=== PATIENT | female | born 1970 | race Two or more races ===

== ENCOUNTER 2019-06-24 23:19 | Emergency (ER) | payer OTHER ==
[~2019-06-24] VITALS: Ht 165.1 cm; Wt 71.7 kg
--- NOTE | 2019-06-24 23:41 | NUR ---
PT BIBRA C/O SOB W/ COUGH X 1 DAY TO ER BWED 4, VSS, ON 2L O2, AWAITING MED EVAL
[2019-06-25 00:36] LABS: BASOPHILS % (AUTO) 0.3 % (0.0-2.0); EOSINOPHILS % (AUTO) 0.9 % (0.0-6.0); HEMATOCRIT 44 % (33-45); HEMOGLOBIN 14.8 g/dL (11.5-14.8); LYMPHOCYTES # (AUTO) 0.9 /CMM (0.8-4.8); LYMPHOCYTES % (AUTO) 6.9 % (20.0-44.0); MEAN CORPUSCULAR HGB CONC 34 g/dl (31.0-36.0); MEAN CORPUSCULAR VOLUME 90 fL (82-100); MONOCYTES % (AUTO) 7.7 % (2.0-12.0); NEUTROPHILS # (AUTO) 11.3 /CMM (1.8-8.9); NEUTROPHILS % (AUTO) 84.2 % (43.0-81.0); PLATELET COUNT (AUTO) 223 /CMM (150-450); RED BLOOD CELL COUNT(AUTO) 4.94 MIL/uL (4.0-5.2); WHITE BLOOD COUNT (AUTO) 13.5 K/uL (4.3-11.0)
[2019-06-25] MEDS ORDERED: ALBUTEROL FS 2.5 MG/0.5 ML VIAL.NEB ONE (00:47)
[2019-06-25] MEDS ORDERED: IPRATROPIUM NEB FS 0.5 MG/2.5 ML AMPUL.NEB ONE (00:48)
[2019-06-25] MEDS: ALBUTEROL FS 2.5 MG/0.5 ML VIAL.NEB NEB ONE (00:49)
[2019-06-25] MEDS: IPRATROPIUM NEB FS 0.5 MG/2.5 ML AMPUL.NEB NEB ONE (00:49)
[2019-06-25 01:15] LABS: CALCIUM, SERUM 9.5 mg/dL (8.5-10.1); CARBON DIOXIDE 29 mmol/L (21-32); CHLORIDE 99 mmol/L (98-107); CREATININE 0.7 mg/dL (0.6-1.3); GLUCOSE 133 mg/dL (74-106); POTASSIUM 4.5 mmol/L (3.5-5.1); SODIUM SERUM 136 mmol/L (136-145); UREA NITROGEN, BLOOD 12 mg/dL (7-18)
--- NOTE | 2019-06-25 01:56 | NUR ---
Patient discharged to home in stable condition. Written and verbal after care instructions given. Patient verbalizes understanding of instruction.
[2019-06-25 01:58] VITALS: BP 139/102
== END 2019-06-25 01:58 | disposition home or self-care (01) ==
LOC: ER 23:23
DX: B34.9 Viral infection, unspecified (principal); J40 Bronchitis, not specified as acute or chronic; F17.200 Nicotine dependence, unspecified, uncomplicated
CPT/HCPCS: 36415; 71045-TC; 80048-TC; 84484-TC; 85025-TC